=== PATIENT | female | born 1990 | race Two or more races ===

== ENCOUNTER 2023-12-04 18:00 | Emergency (ER) | payer BC ==
[~2023-12-04] VITALS: Ht 152.4 cm; Wt 63.5 kg
[2023-12-04 18:51] VITALS: BP 110/61; TEMP 98.3; O2SAT 100
== END 2023-12-04 18:51 | disposition home or self-care (01) ==
LOC: ER 18:10
DX: R55 Syncope and collapse (principal); F12.90 Cannabis use, unspecified, uncomplicated
CPT/HCPCS: 82962-TC